=== PATIENT | female | born 1995 | race Caucasian/White ===

== ENCOUNTER 2024-07-14 15:58 | Emergency (ER) | payer OTHER, SELFPAY ==
[2024-07-14 16:06] VITALS: BP 153/89; PULSE 89; TEMP 36.7; O2SAT 98; BMI 23.3
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
[2024-07-14] MEDS: HYDROcodone-acetaminophen 7.5-325 mg Tablet 1 TAB PO (16:59)
[2024-07-14 18:42] VITALS: BP 118/78; PULSE 70; RESP 20; O2SAT 97
== END 2024-07-14 18:43 | disposition home or self-care (01) ==
PROVIDERS: Emergency Provider Emergency Medicine
DX: S02.2XXA Fracture of nasal bones, initial encounter for closed fracture (principal); V89.2XXA Person injured in unspecified motor-vehicle accident, traffic, initial encounter
CPT/HCPCS: 70450; 70486; 72125; 73090; 99284

== ENCOUNTER 2024-07-17 13:24 | Emergency (ER) | payer OTHER, SELFPAY ==
[2024-07-17 13:48] VITALS: BP 139/88; PULSE 77; RESP 18; TEMP 36.4; O2SAT 98; BMI 24.2
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
[2024-07-17 14:34] LABS: Basophils % 0.4 %; Eosinophils # 0.2 10^3/uL (0.0-0.8); Eosinophils % 2.1 %; Lymphocytes # 1.8 10^3/uL (0.8-4.8); Lymphocytes % 25.1 %; Mean Corpuscular HGB Conc 32.6 g/dL (30-55); Mean Corpuscular Hemoglobin 28.4 pg (27-33); Mean Platelet Volume 10.4 fL (7.4-10.4); Monocytes # 0.5 10^3/uL (0.2-0.9); Monocytes % 7.1 %; Nucleated Red Blood Cells % 0 %; Platelet Count 264 10^3/cmm (157-399); Red Blood Count 4.37 10^6/uL (3.85-5.65); Red Cell Distribution Width 12.7 % (12.1-15.1); White Blood Count 7.08 10^3/uL (3.29-11.43)
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
[2024-07-17 14:52] VITALS: PULSE 72; O2SAT 100
[2024-07-17 14:55] LABS: Alanine Aminotransferase 14 U/L (0-33); Alkaline Phosphatase 65 U/L (35-105); Anion Gap 15.3 (5-19); Aspartate Amino Transferase 14 U/L (0-32); Blood Urea Nitrogen 13 mg/dL (6-20); Calcium 8.8 mg/dL (8.5-10.5); Carbon Dioxide 23 mmol/L (22-29); Chloride 107 mmol/L (98-107); Creatinine Clr Calc Pharmacy 118.6139; Globulin 2.7 g/dL (1.3-4.6); Glomerular Filtration Rate 99.6 mL/min (90-130); Glucose 86 mg/dL (65-115); HCG, Serum Qual Negative (Negative); Osmolality Calculated 291 mOsm/kg (285-295); Potassium 4.3 mmol/L (3.5-5.1); Sodium 141 mmol/L (136-145); Total Bilirubin 0.3 mg/dL (0.15-1.2); Total Protein 6.7 g/dL (6.6-8.7)
[2024-07-17 14:59] LABS: Bilirubin Urine Negative (Negative); Blood Urine Negative (Negative); Glucose Urine UA Negative (Normal); Ketones Urine Negative (Negative); Leukocyte Esterase Urine Negative (Negative); Nitrate Urine Negative (Negative); Protein Urine Negative (Negative); Specific Gravity, Urine 1.021 (1.005-1.030); Urine Appearance Cloudy (CLEAR); Urine Color Yellow (Yellow); pH Urine 5.5 (5-7)
[2024-07-17 15:22] LABS: Add Urine Microscopic? YES; Bacteria Urine 2+ /hpf; RBC Urine 0-4 /hpf (0-2); UA Manual Slide Review YES; UA Slide Review UA Slide Review Perf; WBC Urine 0-4 /hpf (0-5)
[2024-07-17 15:41] VITALS: BP 134/74; PULSE 71; O2SAT 98
== END 2024-07-17 15:48 | disposition home or self-care (01) ==
PROVIDERS: Emergency Provider Family Medicine
DX: M25.552 Pain in left hip (principal); S02.2XXA Fracture of nasal bones, initial encounter for closed fracture; M54.50 Low back pain, unspecified; V89.2XXA Person injured in unspecified motor-vehicle accident, traffic, initial encounter
CPT/HCPCS: 36415; 72100; 73502; 80053; 81001; 84703; 85025; 99284

== ENCOUNTER 2025-04-28 16:36 | Emergency (ER) | payer OTHER, SELFPAY ==
[2025-04-28 17:07] VITALS: BP 122/82; PULSE 73; RESP 18; TEMP 36.6; O2SAT 98; BMI 23.3
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
[2025-04-28] MEDS: rabies vaccine 2.5 unit SDV IM (18:07)
[2025-04-28 18:31] VITALS: BP 122/82; PULSE 73; O2SAT 98
== END 2025-04-28 18:33 | disposition home or self-care (01) ==
PROVIDERS: Emergency Provider Emergency Medicine
DX: Z20.3 Contact with and (suspected) exposure to rabies (principal); Z23 Encounter for immunization
CPT/HCPCS: 90471; 90675; 99283

== ENCOUNTER 2025-05-01 08:50 | Oncology outpatient (recurring) (ONCR) | payer OTHER, SELFPAY ==
[2025-05-01] MEDS: rabies vaccine 2.5 unit SDV IM (09:02)
== END 2025-05-13 23:59 | disposition home or self-care (01) ==
LOC: ONCMED 08:50
PROVIDERS: Visit Provider Emergency Medicine
DX: Z23 Encounter for immunization (principal); Z20.3 Contact with and (suspected) exposure to rabies
CPT/HCPCS: 90471; 90675